=== PATIENT | female | born 1945 | race Caucasian/White ===

== ENCOUNTER 2018-11-19 09:10 | Outpatient (CLI) | payer BC, MEDICARE ==
--- NOTE | 2018-11-19 12:42 | CT ---
CT LUMBAR SPINE WITHOUT CONTRAST: Axial tomograms were obtained with multiplanar reconstruction. INDICATION: Back pain. Prior back surgery. Scoliosis and arthritis. FINDINGS: There is prominent scoliotic curvature of the lumbar spine with convexity to the right apex at L4-5. Severe degenerative disk disease at L2-3, L3-4, and L4-5. There is lateral subluxation to the right of L4 on L5. This is seen in the coronal projection. Vacuum phenomenon is seen at all 3 of these d isk spaces with severe degenerative disk and end plate change. Mild right lateral compression of the L4 vertebra due to the scoliotic curvature and subluxation. In the sagittal view, the vertebrae maintain posterior height and alignment. At L1-2, mild disk bulge. Mild central canal stenosis. Left foraminal stenosis due to asymmetric di sk and fact hypertrophy. At L2-3, mild disk bugle without significant central canal stenosis. Left foraminal stenosis and enc roachment secondary to asymmetric disk protrusion. At L3-4, evidence for broad-based disk bulge slightly more prominent centrally. Moderate central can al stenosis. Severe left foraminal stenosis. Asymmetric disk protrusion into the left foramina late rally on the left. At L4-5, broad-based disk bulge. Mild to moderate central canal stenosis. Severe right foraminal st enosis due to hypertrophic change and asymmetric disk protrusion. At L5-S1, no significant disk bulge or protrusion. No central canal or foraminal stenosis. Incidentally noted is aneurysmal dilatation of the lower abdominal aorta. Total AP dimension is not adequately measured on this exam. A width of this aneurysm is measured at up to 6 cm. IMPRESSION: 1. Severe degenerative changes of the lumbar spine. There is severe scoliotic curvature to the righ t with severe degenerative disk and end plate changes at L2-3, L3-4, and L4-5 levels. Lateral sublux ation of L4 and L5 to the right. Foraminal stenosis at multiple levels as described above. 2. A large abdominal aortic aneurysm is incompletely evaluated. POS: [facility]
== END 2018-11-19 09:11 | disposition home or self-care (01) ==
LOC: SCSCT 09:10
PROVIDERS: ATTEND Anesthesiology Pain Medicine
DX: M51.16 Intervertebral disc disorders with radiculopathy, lumbar region (principal); M47.26 Other spondylosis with radiculopathy, lumbar region; M41.9 Scoliosis, unspecified; M48.061 Spinal stenosis, lumbar region without neurogenic claudication; S33.140A Subluxation of L4/L5 lumbar vertebra, initial encounter
CPT/HCPCS: 72131

== ENCOUNTER 2018-12-06 07:36 | Outpatient (CLI) | payer BC, MEDICARE ==
--- NOTE | 2018-12-06 08:17 | ULT ---
Exam: Abdominal ultrasound HISTORY: Abdominal aortic aneurysm. Comparison none TECHNIQUE: Grayscale sagittal and transverse imaging of the abdominal aorta is performed. Doppler norma ging was also performed. FINDINGS: Proximal aorta measures 2.1 x 2.9 x 2.1 cm.. There is aneurysmal dilatation of the midabdominal aorta measuring 3.8 x 7.3 x 4.4 cm. There is eccen tric thrombus in the mid abdominal aorta. Distal abdominal aorta measures 1.8 x 1.0 x 1.6 cm. IMPRESSION: Aneurysmal dilatation of the mid abdominal aorta as described above. Better interrogation with CT ang iogram is recommended, along with a cardiovascular surgical consultation.
== END 2018-12-06 07:37 | disposition home or self-care (01) ==
LOC: SCSULT 07:36
PROVIDERS: ATTEND Family Medicine
DX: I71.4 Abdominal aortic aneurysm, without rupture (principal); I77.811 Abdominal aortic ectasia
CPT/HCPCS: 76706

== ENCOUNTER 2019-01-05 11:18 | Outpatient (CLI) | payer BC, MEDICARE ==
[~2019-01-05 11:18] MED LIST: Iopamidol 370 76% 100 ML VIAL ONE
--- NOTE | 2019-01-05 14:51 | CT ---
CT ANGIOGRAM OF THE ABDOMEN WITH AND WITHOUT CONTRAST: HISTORY: Abdominal aortic aneurysm evaluation. No reported rupture. COMPARISON: None. CORRELATION: Aortic ultrasound 12/06/2018; CT lumbar spine 11/19/2018. TECHNIQUE: A CT angiogram of the abdominal aorta is performed in the axial plane. Three-dimensional reformatted images are submitted for interpretation. FINDINGS: ABDOMEN CT: Lung bases are clear. Heart size is normal. There is appropriate arterial phase enhancement of the liver, spleen, pancreas, and bilateral adrenal glands. Gallbladder is unremarkable. No gastrohepatic, retrocrural, or periportal lymphadenopathy. Symmetric enhancement of the kidneys. There is thinning of the inferior pole of the right kidney. S ubcentimeter hypodensity in the upper pole of the right kidney cannot be further characterized. Ther e is a hypodensity in the lower pole of the right kidney compatible with a 2.2 x 2.8 cm cyst. No mesenteric mass, lymphadenopathy, free air, or free fluid. Limited evaluation of the alimentary canal by the lack of oral contrast. No evidence of bowel obstru ction. CT PELVIS: Unremarkable urinary bladder. Adnexa are unremarkable. There is a calcification in the uterine fund us, measuring 2.1 x 1.8 cm, likely associated with a calcified uterine leiomyoma. There is no pelvic mass, lymphadenopathy, free air, or free fluid. Osseous structures do not demonstrate any lytic or blastic lesions. There is evidence of previous ve rtebroplasty at L4. There is rightward scoliosis at the L2-L3 level with leftward angulation at the L4 level. Pseudoarthrosis of the left and right L5 ala with the sacrum. CT ANGIOGRAM: The descending thoracic aorta demonstrates atherosclerosis. The celiac artery origin, superior mesen teric artery origin, bilateral renal artery origins, as well as the origin of the inferior mesenteric artery demonstrate mild atherosclerotic disease without high-grade stenosis. The aortic bifurcation , bilateral common iliac arteries, and external iliac arteries do have atherosclerotic changes, witho ut high-grade stenosis. There is aneurysmal dilatation of the infrarenal abdominal aorta. There is associated tortuosity. Maximum dimension of the transverse plane is 3.6 cm. Maximum dimension in th e anterior posterior plate is 3.9 cm. Evaluation of the mediolateral plane is limited due to tortuos ity but appears to be at least 5.5 cm. There is eccentric thrombus. There is resultant mild narrowi ng of the lumen. There are small areas of ulceration/outpouching of contrast in the infrarenal abdom inal aorta. An ulceration measuring 1.4 cm in craniocaudal dimension is suspected. There does appea r to be short segment moderate to severe luminal narrowing of the abdominal aorta just beyond the k[place] gin of the inferior mesenteric artery. At this level, the luminal diameter is 1.0 x 0.8 cm. IMPRESSION: 1. Elongation and aneurysmal dilatation of the infrarenal abdominal aorta. There is extensive throm bus formation with ulceration in the noncalcified mural thrombus. 2. Atherosclerosis involving the origin of the abdominal vasculature as described above without evid ence of high-grade stenosis. 3. Short segment severe stenosis involving the abdominal aorta just beyond the origin of the inferio r mesenteric artery (coronal image 84, series 401; image 56, series 400; and image 61, series 3). POS: [facility]
== END 2019-01-05 11:19 | disposition home or self-care (01) ==
LOC: CT 11:18
PROVIDERS: ATTEND Thoracic Surgery (Cardiothoracic Vascular Surgery)
DX: I71.4 Abdominal aortic aneurysm, without rupture (principal); I77.811 Abdominal aortic ectasia; I74.09 Other arterial embolism and thrombosis of abdominal aorta
CPT/HCPCS: 74174; 82565; Q9967

== ENCOUNTER 2019-08-22 10:37 | Outpatient (CLI) | payer BC, MEDICARE ==
--- NOTE | 2019-08-22 11:36 | ULT ---
BILATERAL CAROTID DUPLEX ULTRASOUND: HISTORY: Amaurosis fugax, left eye TECHNIQUE: Grayscale, color-flow and spectral Doppler ultrasound imaging of the extracranial carotid artery syst ems and vertebral arteries was performed bilaterally. FINDINGS: Bilateral carotid bifurcation and internal carotid artery calcified and noncalcified plaque. Addition al atherosclerosis in the right common carotid artery The peak systolic velocity in the right ICA measures 64.6 cm/s. The peak systolic velocity in the ri ght CCA measures 77.9 cm/s. The peak systolic velocity in the left ICA measures 63.3 cm/s. The peak systolic velocity in the l eft CCA measures 77.9 cm/s. The right IC/CC ration is0.8. The left IC/CC ratio is 0.8. Vertebral flow: antegrade, bilaterally. . IMPRESSION: No hemodynamically significant stenosis of either carotid artery
== END 2019-08-22 10:38 | disposition home or self-care (01) ==
LOC: SCSULT 10:37
PROVIDERS: ATTEND Family Medicine
DX: G45.3 Amaurosis fugax (principal)
CPT/HCPCS: 93880

== ENCOUNTER 2019-10-28 05:53 | Outpatient (CLI) | payer BC, MEDICARE, OTHER ==
[2019-10-28 15:03] LABS: Anion Gap 15 mmol/L (10-20); BUN (Urea Nitrogen) 28 mg/dL (9.8-20.1); Calc. Creatinine Clearance 0 mL/min (70-130); Calcium 9.6 mg/dL (7.8-10.44); Carbon Dioxide 26 mmol/L (23-31); Chloride 101 mmol/L (98-107); Estimated GFR-MDRD 36; Glucose 155 mg/dL (83-110); Hemoglobin 15.1 g/dL (12.0-16.0); Mean Corpuscular HGB CONC 32.6 g/dL (32.0-36.0); Mean Corpuscular Hemoglobin 35.3 pg (27.0-31.0); Mean Platelet Volume 8.3 fL (7.4-10.4); Platelet Count 206 thou/uL (130-400); Potassium 4.3 mmol/L (3.5-5.1); Red Blood Cell (RBC) Count 4.26 mill/uL (4.20-5.40); Sodium 138 mmol/L (136-145); White Blood Cell (WBC) Count 12.8 thou/uL (4.8-10.8)
[2019-10-29 12:09] LABS: SARS-CoV-2 MS2 Positive; SARS-CoV-2 N Gene Negative; SARS-CoV-2 S Gene Negative; SARS-CoV-2 orf1ab Negative
== END 2019-10-28 05:54 | disposition home or self-care (01) ==
LOC: LABBT 05:53
PROVIDERS: ATTEND Thoracic Surgery (Cardiothoracic Vascular Surgery)
DX: Z01.812 Encounter for preprocedural laboratory examination (principal); Z11.59 Encounter for screening for other viral diseases; I71.4 Abdominal aortic aneurysm, without rupture
CPT/HCPCS: 80048; 85027; 87635; U0003

== ENCOUNTER 2019-10-28 11:30 | Inpatient (IN) | payer BC, MEDICARE ==
[2019-10-25 12:05] VITALS: BMI 18.8
[2019-11-01] MEDS ORDERED: Fentanyl 100 MCG/2 ML VIAL ONE ×3 (06:30→10:42)
[2019-11-01] MEDS ORDERED: Midazolam HCl 2 mg/2 ml Vial ONE (06:30)
[2019-11-01] MEDS ORDERED: Heparin 5,000 UNITS/ML VIAL ONE (06:42)
[2019-11-01] MEDS ORDERED: Heparin 10,000 UNITS/1 ML VIAL 30,000 UNITS in Sodium Chloride 0.9% 1,000 ML FS SCH (07:30)
[2019-11-01] MEDS ORDERED: Ondansetron HCl/PF 4 MG/2 ML Vial IVP PRN (08:46)
[2019-11-01] MEDS ORDERED: Fentanyl 100 MCG/2 ML VIAL SLOW IVP PRN ×2 (11:00)
[2019-11-01] MEDS ORDERED: DOPamine 400 MG/D5W 250 ML 250 ML IVPB PRN (11:00)
[2019-11-01] MEDS ORDERED: Nitroglycerin 50 MG/250 ML BOT 250 ML IVPB PRN (11:00)
[2019-11-01] MEDS ORDERED: Naloxone HCl 0.4 mg/ml Vial IV PRN (12:01)
[2019-11-01 12:16] LABS: Hemoglobin 13.2 g/dL (12.0-16.0); Platelet Count 179 thou/uL (130-400)
[2019-11-01] MEDS ORDERED: PHENYLEPHRINE-NS 100 MCG/ML 10 ML SYRINGE ONE (12:21)
[2019-11-01] MEDS ORDERED: Ondansetron PF 4 MG/2 ML Vial ONE (12:21)
[2019-11-01] MEDS ORDERED: Dexamethasone 20 MG/5 ML VIAL ONE (12:21)
[2019-11-01] MEDS ORDERED: Labetalol HCl 100 MG/20 ML VIAL ONE (12:21)
[2019-11-01] MEDS ORDERED: Glycopyrrolate 0.2 MG/ML 5 ML SYRINGE ONE (12:21)
[2019-11-01] MEDS ORDERED: Lidocaine 1% PF 5 ML VIAL ONE (12:21)
[2019-11-01] MEDS ORDERED: Ketorolac Tromethamine 30 MG/ML VIAL ONE (12:21)
[2019-11-01] MEDS ORDERED: PROPOFOL 200 MG/20 ML VIAL ONE (12:21)
[2019-11-01] MEDS ORDERED: Vecuronium 10 MG VIAL ONE (12:21)
[2019-11-01] MEDS: fentaNYL Citrate/PF 2,000 MCG in Sodium Chloride 0.9% 60 ML IV PRN (12:23)
[2019-11-01] MEDS: Vancomycin 1 GM in Premix Bag 1 BAG IVPB SCH (13:22)
[2019-11-01] MEDS: CEFAZOLIN 2 GM in Premix Bag 1 BAG IVPB SCH ×2 (15:00→23:48)
--- NOTE | 2019-11-01 15:55 | EKG ---
Test Reason : PREOP Blood Pressure : / mmHG Vent. Rate : 068 BPM Atrial Rate : 068 BPM P-R Int : 144 ms QRS Dur : 080 ms QT Int : 426 ms P-R-T Axes : 077 -35 066 degrees QTc Int : 452 ms Normal sinus rhythm Left axis deviation Abnormal ECG No previous ECGs available Confirmed by DR. Bekah KAUFFMAN MD ([id number]) on 11/01/2019 3:54:54 PM Referred By: MADELYN Confirmed By:DR. Bekah KAUFFMAN MD
[2019-11-01] MEDS: Lactated Ringer's 1,000 ML IV SCH ×2 (16:11→23:55)
[2019-11-01] MEDS: Hydrocortisone Sod Succ/PF 100 mg/2 ml Vial IVP SCH (20:41)
[2019-11-01] MEDS: Lorazepam 2 MG/ML VIAL SLOW IVP SCH (20:41)
[2019-11-02] MEDS: Vancomycin 1 GM in Premix Bag 1 BAG IVPB SCH ×2 (00:43→11:25)
[2019-11-02 04:12] LABS: #Lymphocytes 0.5 thou/uL (1.20-3.40); #Monocytes 1.2 thou/uL (0.11-0.59); #Neutrophils 9.5 thou/uL (1.40-6.50); %Basophils 0.1 % (0.0-1.0); %Eosinophils 0.2 % (0.0-10.0); %Lymphocytes 4.7 % (21.0-51.0); %Monocytes 10.9 % (0.0-10.0); %Neutrophils 84.1 % (42.0-75.0); Hemoglobin 10.8 g/dL (12.0-16.0); Mean Corpuscular HGB CONC 31.7 g/dL (32.0-36.0); Mean Platelet Volume 8.6 fL (7.4-10.4); Platelet Count 153 thou/uL (130-400); RBC Distribution Width 11.9 % (11.5-14.5); Red Blood Cell (RBC) Count 3.18 mill/uL (4.20-5.40); White Blood Cell (WBC) Count 11.3 thou/uL (4.8-10.8)
[2019-11-02 04:30] LABS: Anion Gap 12 mmol/L (10-20); BUN (Urea Nitrogen) 20 mg/dL (9.8-20.1); Calc. Creatinine Clearance 36 mL/min (70-130); Carbon Dioxide 28 mmol/L (23-31); Chloride 104 mmol/L (98-107); Estimated GFR-MDRD 49; Glucose 110 mg/dL (83-110); Potassium 3.7 mmol/L (3.5-5.1); Sodium 140 mmol/L (136-145)
[2019-11-02] MEDS: Lactated Ringer's 1,000 ML IV SCH ×2 (06:20→09:27)
--- NOTE | 2019-11-02 06:43 | OP ---
DATE OF PROCEDURE: 11/01/2019 PREOPERATIVE DIAGNOSIS: Abdominal aortic aneurysm. PROCEDURE PERFORMED: Resection of abdominal aortic aneurysm with placement of a #14 Dacron Hemashield straight graft. SEED ANALYSIS LABORATORY ASSISTANT: Dr. Rowe. ESTIMATED BLOOD LOSS: Less than 300. DESCRIPTION OF PROCEDURE: After adequate anesthesia had been obtained, a long midline incision was made. Peritoneum entered and the bowel retracted to the right. Dissection was carried cephalad well above the renal vein, but underneath renal vein until the right renal artery was identified. Dissection was then carried distally down to the common iliac bifurcation, which was gently exposed. The patient was then heparinized with good ACT levels, following which clamps were applied to the aorta just below the renal artery and then to the aorta just at the bifurcation of the common iliacs. Inferior mesenteric artery was oversewn with a silk ligature and the aneurysm was opened and lumbar vessels oversewn x2. The thrombus was removed and a 14 Hemashield graft was anastomosed proximally with a running 3-0 Prolene suture and some pledgetted sutures were required to reinforce this. Distal anastomosis was then performed with a running 4-0 Prolene suture. Flushing forward and backward prior to restoring flow with compression on the femoral arteries in the groin. Following protamine administration and obtaining good hemostasis, the graft was covered with the old aneurysm sac from about the lower 3rd proximally and then the reperitonealization was carried out to separate bowel from the remainder of the arteries. The bowel was returned to the abdominal cavity and the fascia was then closed with a running double-stranded PDS suture, and subcutaneous tissue and skin were closed in layers. The patient had palpable dorsalis pedis pulses at the conclusion of the procedure with pink feet. Job ID: [id number]
[2019-11-02] MEDS: CEFAZOLIN 2 GM in Premix Bag 1 BAG IVPB SCH (06:57)
[2019-11-02] MEDS ORDERED: Prevnar 13-Val Conj/PF 0.5 ML SYRINGE IM ONE (09:00)
[2019-11-02] MEDS: Aspirin Chewable 81 MG TAB PO SCH (09:08)
[2019-11-02] MEDS: Enoxaparin Sodium 30 MG/0.3 ML SYRINGE SC SCH (09:09)
[2019-11-02] MEDS: Hydrocortisone Sod Succ/PF 100 mg/2 ml Vial IVP SCH ×2 (09:10→20:29)
[2019-11-02] MEDS: Lorazepam 2 MG/ML VIAL SLOW IVP SCH ×3 (09:10→20:29)
[2019-11-02] MEDS: fentaNYL Citrate/PF 2,000 MCG in Sodium Chloride 0.9% 60 ML IV PRN (10:22)
[2019-11-02] MEDS: Ondansetron PF 4 MG/2 ML Vial IVP PRN (11:25)
[2019-11-02] MEDS: Acetaminophen 500 MG TAB PO SCH ×2 (11:25→17:27)
[2019-11-02 14:31] LABS: Hemoglobin 11.3 g/dL (12.0-16.0); Platelet Count 135 thou/uL (130-400)
[2019-11-02] MEDS: BEER 1 CAN PO SCH ×2 (17:39→18:11)
[2019-11-03] MEDS: Acetaminophen 500 MG TAB PO SCH ×4 (00:27→17:33)
[2019-11-03 00:52] LABS: Vancomycin, Trough 22.4 ug/mL
[2019-11-03] MEDS: Vancomycin 1 GM in Premix Bag 1 BAG IVPB SCH (01:30)
[2019-11-03] MEDS: Lorazepam 2 MG/ML VIAL SLOW IVP SCH (03:30)
[2019-11-03 03:44] LABS: #Lymphocytes 0.5 thou/uL (1.20-3.40); #Neutrophils 7.7 thou/uL (1.40-6.50); %Basophils 0.1 % (0.0-1.0); %Eosinophils 0.2 % (0.0-10.0); %Lymphocytes 4.9 % (21.0-51.0); %Monocytes 10.7 % (0.0-10.0); %Neutrophils 84.2 % (42.0-75.0); Hemoglobin 10.9 g/dL (12.0-16.0); Mean Corpuscular HGB CONC 31.5 g/dL (32.0-36.0); Mean Corpuscular Hemoglobin 33.8 pg (27.0-31.0); Mean Platelet Volume 8.7 fL (7.4-10.4); Platelet Count 127 thou/uL (130-400); RBC Distribution Width 11.7 % (11.5-14.5); Red Blood Cell (RBC) Count 3.23 mill/uL (4.20-5.40); White Blood Cell (WBC) Count 9.2 thou/uL (4.8-10.8)
[2019-11-03 05:15] LABS: Anion Gap 12 mmol/L (10-20); BUN (Urea Nitrogen) 12 mg/dL (9.8-20.1); Calc. Creatinine Clearance 51 mL/min (70-130); Calcium 8.5 mg/dL (7.8-10.44); Carbon Dioxide 29 mmol/L (23-31); Chloride 102 mmol/L (98-107); Estimated GFR-MDRD 72; Glucose 87 mg/dL (83-110); Potassium 3.3 mmol/L (3.5-5.1); Sodium 140 mmol/L (136-145)
[2019-11-03] MEDS ORDERED: HYDROcodone/Acetaminophen 10/325 mg Tablet PO SCH (09:00)
[2019-11-03] MEDS ORDERED: Lactated Ringer's 1,000 ML IV SCH (09:21)
[2019-11-03] MEDS ORDERED: Diazepam 5 MG TAB PO PRN (09:21)
[2019-11-03] MEDS: Rosuvastatin 10 MG TAB PO SCH (09:40)
[2019-11-03] MEDS: Polyethylene Glycol 3350 17 GM Packet PO SCH (09:40)
[2019-11-03] MEDS: Enoxaparin Sodium 30 MG/0.3 ML SYRINGE SC SCH (09:40)
[2019-11-03] MEDS: Triamterene/Hydrochlorothiazide 37.5 mg/25 mg Tablet PO SCH (09:40)
[2019-11-03] MEDS: Aspirin 325 mg Enteric Coated Tablet PO SCH (09:40)
[2019-11-03] MEDS: CeleCOXIB 100 MG CAP PO SCH ×2 (09:40→20:33)
[2019-11-03] MEDS ORDERED: predniSONE 5 MG TAB PO SCH (10:00)
[2019-11-03] MEDS: fentaNYL Citrate/PF 2,000 MCG in Sodium Chloride 0.9% 60 ML IV PRN (12:29)
[2019-11-03] MEDS: Aspirin Chewable 81 MG TAB PO SCH (13:17)
[2019-11-03] MEDS: Hydrocortisone Sod Succ/PF 100 mg/2 ml Vial IVP SCH (13:17)
[2019-11-03] MEDS: Lactated Ringer's 1,000 ML IV SCH (13:18)
[2019-11-03] MEDS: BEER 1 CAN PO SCH (13:18)
[2019-11-03] MEDS: Ondansetron PF 4 MG/2 ML Vial IVP PRN (17:33)
[2019-11-04] MEDS: Acetaminophen 500 MG TAB PO SCH ×4 (00:03→15:59)
[2019-11-04] MEDS: Polyethylene Glycol 3350 17 GM Packet PO SCH (09:28)
[2019-11-04] MEDS: Triamterene/Hydrochlorothiazide 37.5 mg/25 mg Tablet PO SCH (09:28)
[2019-11-04] MEDS: Aspirin 325 mg Enteric Coated Tablet PO SCH (09:28)
[2019-11-04] MEDS: predniSONE 5 MG TAB PO SCH (09:29)
[2019-11-04] MEDS: Enoxaparin Sodium 30 MG/0.3 ML SYRINGE SC SCH (09:30)
[2019-11-04] MEDS: CeleCOXIB 100 MG CAP PO SCH ×2 (09:30→20:42)
[2019-11-04] MEDS: Rosuvastatin 10 MG TAB PO SCH (09:30)
[2019-11-04] MEDS ORDERED: HYDROcodone/Acetaminophen 10/325 mg Tablet PO PRN (09:50)
[2019-11-04] MEDS: HYDROcodone/Acetaminophen 10/325 mg Tablet PO PRN ×3 (11:39→22:54)
[2019-11-05] MEDS: Acetaminophen 500 MG TAB PO SCH ×3 (00:42→11:08)
[2019-11-05] MEDS: HYDROcodone/Acetaminophen 10/325 mg Tablet PO PRN ×2 (04:12→10:42)
[2019-11-05] MEDS: Rosuvastatin 10 MG TAB PO SCH (10:41)
[2019-11-05] MEDS: CeleCOXIB 100 MG CAP PO SCH (10:44)
[2019-11-05] MEDS: Aspirin 325 mg Enteric Coated Tablet PO SCH (10:45)
[2019-11-05] MEDS: Triamterene/Hydrochlorothiazide 37.5 mg/25 mg Tablet PO SCH (10:45)
[2019-11-05] MEDS: predniSONE 5 MG TAB PO SCH (10:45)
[2019-11-05] MEDS: Enoxaparin Sodium 30 MG/0.3 ML SYRINGE SC SCH (10:48)
[2019-11-05] MEDS: Polyethylene Glycol 3350 17 GM Packet PO SCH (10:49)
[2019-11-05 11:20] VITALS: BP 142/81; TEMP 98.7
== END 2019-11-05 13:59 | disposition home or self-care (01) | DRG 269 ==
LOC: SURG A 11-01 06:24 → CCU 11-01 11:23 → SURG B 11-03 09:32
PROVIDERS: ADMIT Thoracic Surgery (Cardiothoracic Vascular Surgery); ATTEND Thoracic Surgery (Cardiothoracic Vascular Surgery)
PROC: 04R00JZ Replacement of Abdominal Aorta with Synthetic Substitute, Open Approach (ICD-10-PCS; principal; 2019-11-01)
DX: I71.4 Abdominal aortic aneurysm, without rupture (principal); I10 Essential (primary) hypertension; E78.5 Hyperlipidemia, unspecified; J30.2 Other seasonal allergic rhinitis; F32.9 Major depressive disorder, single episode, unspecified; Z88.6 Allergy status to analgesic agent; Z88.8 Allergy status to other drugs, medicaments and biological substances; Z86.73 Personal history of transient ischemic attack (TIA), and cerebral infarction without residual deficits; Z98.42 Cataract extraction status, left eye; Z98.41 Cataract extraction status, right eye; Z87.891 Personal history of nicotine dependence
CPT/HCPCS: 36415; 36416; 80048; 80202; 85014; 85018; 85025; 85049; 86850; 86900; 86901; 93005; 93010; C1768; J0690; J1100; J1642; J1644; J1650; J1720; J1885; J2060; J2250; J2405; J2704; J3010; J3370; J3490; J7512

== ENCOUNTER 2021-02-01 10:52 | Outpatient (CLI) | payer BC, MEDICARE | END 2021-02-01 10:53 | disposition home or self-care (01) | LOC: LABBT 10:52 | PROVIDERS: ATTEND Orthopaedic Surgery | DX: Z01.818 Encounter for other preprocedural examination (principal); M17.0 Bilateral primary osteoarthritis of knee; Z20.822 Contact with and (suspected) exposure to COVID-19 | CPT/HCPCS: 71046; 80048; 81001; 85025; 85610; 86850; 86900; 86901; 87081; U0003; U0005 ==

== ENCOUNTER 2021-02-06 05:43 | Observation (INO) | payer BC, MEDICARE ==
[2021-02-01 12:26] LABS: Bilirubin Neg (Negative); Blood, Urine Negative (Negative); Clarity Clear (Clear); Glucose, Urine (Dipstick) Normal (Negative); Ketone, Urine Negative (Negative); Leukocyte 25 (Negative); Nitrite Negative (Negative); Protein, Urine (Dipstick) 15 mg/dl (Neg-Trace); Urobilinogen Normal mg/dL (Less than 2); pH, Urine 6.5 (5.0-9.0)
[2021-02-01 12:38] LABS: #Basophils 0.1 10x3/uL (0.0-0.2); #Eosinphils 0.1 10x3/uL (0.0-0.5); #Monocytes 0.6 10x3/uL (0.0-1.1); #Neutrophils 7.5 10x3/uL (1.5-8.4); %Basophils 0.9 % (0.0-2.0); %Lymphocytes 9.9 % (18.0-47.0); %Monocytes 6.7 % (0.0-10.0); %Neutrophils 80.9 % (40.0-75.0); Hemoglobin 12.9 g/dL (12.0-15.5); Mean Corpuscular HGB CONC 31.7 g/dL (32.0-36.0); Mean Corpuscular Hemoglobin 33.9 pg (27.0-33.0); Mean Corpuscular Volume 106.8 fl (81.6-98.3); Mean Platelet Volume 10.2 fl (7.4-10.4); Platelet Count 224 10x3/uL (150-450); Red Blood Cell (RBC) Count 3.81 10x6/uL (3.90-5.03); White Blood Cell (WBC) Count 9.3 10x3/uL (3.5-10.5)
[2021-02-01 12:40] LABS: INR-International Normal Ratio 0.9; Prothrombin Time 10.4 sec (9.5-12.1)
[2021-02-01 12:46] LABS: Anion Gap 17 mmol/L (10-20); BUN (Urea Nitrogen) 30 mg/dL (9.8-20.1); Calc. Creatinine Clearance 0 mL/min (70-130); Carbon Dioxide 22 mmol/L (23-31); Chloride 104 mmol/L (98-107); Glucose 100 mg/dL (83-110); Sodium 138 mmol/L (136-145)
[2021-02-01 14:02] LABS: Bacteria/HPF 1+ HPF (None Seen); RBC/HPF 0-3 HPF (0-3); Squamous Epithelial 0-3 HPF (0-3); WBC/HPF 0-3 HPF (0-3)
[2021-02-02 13:13] LABS: SARS-CoV-2 PCR by NAA Not Detected (NotDetected)
[2021-02-06] MEDS ORDERED: Fentanyl 100 MCG/2 ML VIAL ONE ×7 (06:18→13:59)
[2021-02-06] MEDS ORDERED: methylPREDNISolone Acetate 40 mg/ml Vial ONE (06:27)
[2021-02-06] MEDS ORDERED: Lidocaine 1% (PF) 30 ML VIAL ONE (06:27)
[2021-02-06] MEDS ORDERED: Sodium Chloride 0.9% 100 ML ONE ×2 (06:42→13:44)
[2021-02-06] MEDS ORDERED: Vancomycin 1 GM/200 ML BAG ONE (06:42)
[2021-02-06] MEDS ORDERED: Tranexamic Acid 1,000 MG/10 ML VIAL ONE ×2 (06:42→13:49)
[2021-02-06] MEDS ORDERED: Hydrocortisone Sod Succ/PF 100 mg/2 ml Vial ONE (07:05)
[2021-02-06] MEDS ORDERED: Midazolam HCl 2 mg/2 ml Vial ONE (07:08)
[2021-02-06] MEDS ORDERED: Acetaminophen 325 MG TAB PO PRN (08:05)
[2021-02-06] MEDS ORDERED: traMADol HCl 50 MG TAB PO PRN ×3 (08:05→13:30)
[2021-02-06] MEDS ORDERED: Promethazine HCl 25 MG/ML VIAL IM PRN ×3 (08:05→13:30)
[2021-02-06] MEDS ORDERED: Fentanyl 100 MCG/2 ML VIAL SLOW IVP PRN (08:05)
[2021-02-06] MEDS ORDERED: Ondansetron PF 4 MG/2 ML Vial IVP PRN ×2 (08:05→13:30)
[2021-02-06] MEDS ORDERED: Zolpidem Tartrate 5 MG TAB PO PRN ×2 (08:05→13:30)
[2021-02-06] MEDS ORDERED: HYDROcodone/Acetaminophen 10/325 mg Tablet PO PRN ×3 (08:05→13:30)
[2021-02-06] MEDS ORDERED: diphenhydrAMINE 25 MG CAP PO PRN (08:05)
[2021-02-06] MEDS ORDERED: Diazepam 5 MG TAB PO PRN (08:07)
[2021-02-06] MEDS ORDERED: Tranexamic Acid 1,000 MG in Sodium Chloride 0.9% 100 ML IVPB SCH (08:15)
[2021-02-06] MEDS ORDERED: Aspirin 81 mg Enteric Coated Tablet PO SCH (09:00)
[2021-02-06] MEDS ORDERED: CeleCOXIB 100 MG CAP PO SCH ×2 (09:00)
[2021-02-06] MEDS ORDERED: Bupivacaine PF 0.5% 30 ML VIAL ONE (09:43)
[2021-02-06] MEDS ORDERED: Lidocaine 1% PF 5 ML VIAL ONE (10:44)
[2021-02-06] MEDS ORDERED: Ondansetron PF 4 MG/2 ML Vial ONE (10:44)
[2021-02-06] MEDS ORDERED: ePHEDrine 50 MG/ML VIAL ONE (10:44)
[2021-02-06] MEDS ORDERED: PROPOFOL 200 MG/20 ML VIAL ONE (10:44)
[2021-02-06] MEDS ORDERED: Ropivacaine 0.5% HCl/PF (150 MG/30 ML VIAL) ONE (10:44)
[2021-02-06] MEDS ORDERED: Phenylephrine 10 MG/ML VIAL ONE (11:00)
[2021-02-06 12:12] LABS: Anion Gap 11 mmol/L (10-20); BUN (Urea Nitrogen) 26 mg/dL (9.8-20.1); Calc. Creatinine Clearance 24 mL/min (70-130); Calcium 9.3 mg/dL (7.8-10.44); Carbon Dioxide 26 mmol/L (23-31); Chloride 106 mmol/L (98-107); Glucose 109 mg/dL (83-110); Potassium 4.3 mmol/L (3.5-5.1); Sodium 139 mmol/L (136-145)
[2021-02-06] MEDS ORDERED: Ondansetron HCl/PF 4 MG/2 ML Vial IVP PRN (12:39)
[2021-02-06] MEDS ORDERED: Promethazine HCl 25 MG/ML VIAL IVPB PRN (12:39)
[2021-02-06] MEDS ORDERED: Fentanyl 100 MCG/2 ML VIAL IV PRN (13:27)
[2021-02-06] MEDS ORDERED: Ropivacaine 0.2% 550 ML 550 ML NERVE BLCK SCH (13:30)
[2021-02-06] MEDS ORDERED: HYDROmorphone 0.5 MG/0.5 ML SYRINGE ONE ×2 (14:13→14:27)
[2021-02-06 16:00] VITALS: BMI 18.6
[2021-02-06] MEDS: DULoxetine 30 MG CAP PO SCH ×2 (16:46→20:51)
[2021-02-06] MEDS: Sodium Chloride 0.9% 1,000 ML IV SCH ×2 (16:46→17:48)
[2021-02-06] MEDS: Triamterene/Hydrochlorothiazide 37.5 mg/25 mg Tablet PO SCH (16:46)
[2021-02-06] MEDS: Gabapentin 300 MG CAP PO SCH ×2 (16:46→20:49)
[2021-02-06] MEDS: Rosuvastatin 10 MG TAB PO SCH (16:46)
[2021-02-06] MEDS: Aspirin 81 mg Enteric Coated Tablet PO SCH ×2 (16:46→20:51)
[2021-02-06] MEDS: Methocarbamol 500 MG TAB PO SCH ×3 (16:46→21:12)
[2021-02-06] MEDS: ceFAZolin Sodium/D5W 2 GM in Premix Bag 1 BAG IVPB SCH ×2 (16:47→23:25)
[2021-02-06] MEDS: Ketorolac Tromethamine 30 MG/ML VIAL IVP PRN ×2 (17:47→23:26)
[2021-02-06] MEDS ORDERED: Vancomycin 1 GM in Premix Bag 1 BAG IVPB SCH (20:00)
[2021-02-06] MEDS: Lisinopril 10 MG TAB PO SCH (20:51)
[2021-02-06] MEDS: HYDROcodone/Acetaminophen 10/325 mg Tablet PO PRN (20:52)
[2021-02-07] MEDS: Sodium Chloride 0.9% 1,000 ML IV SCH ×3 (00:52→20:58)
[2021-02-07] MEDS: HYDROcodone/Acetaminophen 10/325 mg Tablet PO PRN ×5 (02:54→21:17)
[2021-02-07] MEDS: Temazepam 15 MG CAP PO PRN ×2 (02:55→21:14)
[2021-02-07] MEDS: Ketorolac Tromethamine 30 MG/ML VIAL IVP PRN (05:04)
[2021-02-07 06:03] LABS: Hemoglobin 9.6 g/dL (12.0-16.0); Mean Corpuscular HGB CONC 32.7 g/dL (32.0-36.0); Mean Corpuscular Hemoglobin 35.4 pg (27.0-31.0); Mean Platelet Volume 7.8 fL (7.4-10.4); Platelet Count 162 thou/uL (130-400); RBC Distribution Width 11.3 % (11.5-14.5); White Blood Cell (WBC) Count 10.4 thou/uL (4.8-10.8)
[2021-02-07] MEDS: Aspirin 81 mg Enteric Coated Tablet PO SCH ×2 (08:01→20:20)
[2021-02-07] MEDS: Rosuvastatin 10 MG TAB PO SCH (08:01)
[2021-02-07] MEDS: DULoxetine 30 MG CAP PO SCH ×2 (08:02→20:20)
[2021-02-07] MEDS: Ferrous Gluconate 324 MG TAB PO SCH ×2 (08:02→17:43)
[2021-02-07] MEDS: Methocarbamol 500 MG TAB PO SCH ×4 (08:02→20:20)
[2021-02-07] MEDS: Multivitamin W/ Minerals 1 TAB PO SCH (08:02)
[2021-02-07] MEDS: Gabapentin 300 MG CAP PO SCH ×2 (08:02→20:20)
[2021-02-07] MEDS: Senokot S 8.6-50 MG TAB PO SCH ×2 (08:03→20:22)
[2021-02-07] MEDS: predniSONE 5 MG TAB PO SCH (08:03)
[2021-02-07] MEDS: Triamterene/Hydrochlorothiazide 37.5 mg/25 mg Tablet PO SCH (08:03)
[2021-02-07 08:13] LABS: Anion Gap 12 mmol/L (10-20); BUN (Urea Nitrogen) 25 mg/dL (9.8-20.1); Calc. Creatinine Clearance 26 mL/min (70-130); Calcium 8.3 mg/dL (7.8-10.44); Carbon Dioxide 25 mmol/L (23-31); Chloride 102 mmol/L (98-107); Glucose 122 mg/dL (83-110); Potassium 4.7 mmol/L (3.5-5.1); Sodium 134 mmol/L (136-145)
[2021-02-07] MEDS: Lisinopril 10 MG TAB PO SCH (20:19)
[2021-02-08] MEDS: HYDROcodone/Acetaminophen 10/325 mg Tablet PO PRN ×3 (00:58→08:50)
[2021-02-08 06:28] LABS: Hemoglobin 10.2 g/dL (12.0-16.0); Mean Corpuscular HGB CONC 32.7 g/dL (32.0-36.0); Mean Corpuscular Hemoglobin 35.3 pg (27.0-31.0); Platelet Count 156 thou/uL (130-400); RBC Distribution Width 11.5 % (11.5-14.5); White Blood Cell (WBC) Count 7.9 thou/uL (4.8-10.8)
[2021-02-08] MEDS: predniSONE 5 MG TAB PO SCH (08:47)
[2021-02-08] MEDS: Multivitamin W/ Minerals 1 TAB PO SCH (08:47)
[2021-02-08] MEDS: Aspirin 81 mg Enteric Coated Tablet PO SCH (08:47)
[2021-02-08] MEDS: Gabapentin 300 MG CAP PO SCH (08:47)
[2021-02-08] MEDS: Rosuvastatin 10 MG TAB PO SCH (08:47)
[2021-02-08] MEDS: DULoxetine 30 MG CAP PO SCH (08:47)
[2021-02-08] MEDS: Ferrous Gluconate 324 MG TAB PO SCH (08:47)
[2021-02-08] MEDS: Methocarbamol 500 MG TAB PO SCH (09:52)
[2021-02-08] MEDS: Senokot S 8.6-50 MG TAB PO SCH (09:56)
[2021-02-08] MEDS: Triamterene/Hydrochlorothiazide 37.5 mg/25 mg Tablet PO SCH (09:56)
[2021-02-08] MEDS: Sodium Chloride 0.9% 1,000 ML IV SCH (10:41)
[2021-02-08 10:48] VITALS: BP 101/65; TEMP 98.4
== END 2021-02-08 11:40 | disposition home or self-care (01) ==
LOC: SDC 05:43 → SJJU 08:05 → SDC 02-07 17:36 → SJJU 02-07 17:36
PROVIDERS: ADMIT Orthopaedic Surgery; ATTEND Orthopaedic Surgery
PROC: 3E0U33Z Introduction of Anti-inflammatory into Joints, Percutaneous Approach (ICD-10-PCS; principal; 2021-02-06)
PROC: 0SRC0J9 Replacement of Right Knee Joint with Synthetic Substitute, Cemented, Open Approach (ICD-10-PCS; 2021-02-06)
PROC: 8E0YXBZ Computer Assisted Procedure of Lower Extremity (ICD-10-PCS; 2021-02-06)
PROC: 3E0T3BZ Introduction of Anesthetic Agent into Peripheral Nerves and Plexi, Percutaneous Approach (ICD-10-PCS; 2021-02-06)
DX: M17.0 Bilateral primary osteoarthritis of knee (principal); I10 Essential (primary) hypertension; E78.5 Hyperlipidemia, unspecified; Z85.3 Personal history of malignant neoplasm of breast; Z87.891 Personal history of nicotine dependence; Z79.2 Long term (current) use of antibiotics; Z79.52 Long term (current) use of systemic steroids; Z79.899 Other long term (current) drug therapy; Z88.8 Allergy status to other drugs, medicaments and biological substances; Z91.048 Other nonmedicinal substance allergy status
CPT/HCPCS: 36415; 80048; 81001; 85025; 85027; 85610; 86850; 86900; 86901; A4306; C1713; C1776; G0378; J1170; J1720; J1885; J2001; J2250; J2370; J2405; J2704; J2795; J2920; J3010; J3370; J3490; J7050; J7512; S0020; U0003; U0005

== ENCOUNTER 2021-08-28 10:25 | Outpatient (CLI) | payer BC, MEDICARE | END 2021-08-28 10:26 | disposition home or self-care (01) | LOC: LABBT 10:25 | PROVIDERS: ATTEND Orthopaedic Surgery | DX: Z01.818 Encounter for other preprocedural examination (principal); M17.12 Unilateral primary osteoarthritis, left knee; Z20.822 Contact with and (suspected) exposure to COVID-19 | CPT/HCPCS: 80048; 81003; 85025; 85610; 86850; 86900; 86901; 87081; 93005; 93010; U0003; U0005 ==

== ENCOUNTER 2021-09-09 06:32 | Inpatient (IN) | payer BC, MEDICARE ==
[2021-08-28 11:47] LABS: Bilirubin Neg (Negative); Blood, Urine Negative (Negative); Clarity Clear (Clear); Glucose, Urine (Dipstick) Normal (Negative); Ketone, Urine Negative (Negative); Leukocyte Negative (Negative); Nitrite Negative (Negative); Protein, Urine (Dipstick) Negative (Neg-Trace); Specific Gravity, Urine 1.015 (1.002-1.036); Urobilinogen Normal mg/dL (Less than 2)
[2021-08-28 11:58] LABS: #Basophils 0.1 10x3/uL (0.0-0.2); #Eosinphils 0.1 10x3/uL (0.0-0.5); #Monocytes 0.7 10x3/uL (0.0-1.1); #Neutrophils 8.8 10x3/uL (1.5-8.4); %Basophils 0.7 % (0.0-2.0); %Eosinophils 0.7 % (0.0-6.0); %Lymphocytes 9.1 % (18.0-47.0); %Monocytes 6.4 % (0.0-10.0); %Neutrophils 82.5 % (40.0-75.0); Hemoglobin 13.2 g/dL (12.0-15.5); Mean Corpuscular HGB CONC 32.8 g/dL (32.0-36.0); Mean Corpuscular Hemoglobin 34.6 pg (27.0-33.0); Mean Corpuscular Volume 105.5 fl (81.6-98.3); Mean Platelet Volume 10.2 fl (7.4-10.4); Platelet Count 216 10x3/uL (150-450); RBC Distribution Width 13.2 % (11.5-14.5); Red Blood Cell (RBC) Count 3.81 10x6/uL (3.90-5.03); White Blood Cell (WBC) Count 10.7 10x3/uL (3.5-10.5)
[2021-08-28 12:09] LABS: INR-International Normal Ratio 0.9; Prothrombin Time 9.8 sec (9.5-12.1)
[2021-08-28 12:21] LABS: Anion Gap 14 mmol/L (10-20); BUN (Urea Nitrogen) 36 mg/dL (9.8-20.1); Calc. Creatinine Clearance 0 mL/min (70-130); Calcium 9.5 mg/dL (7.8-10.44); Carbon Dioxide 26 mmol/L (23-31); Chloride 102 mmol/L (98-107); Glucose 124 mg/dL (83-110); Potassium 4.9 mmol/L (3.5-5.1); Sodium 137 mmol/L (136-145)
[2021-08-28 13:03] LABS: Anisocytosis SLIGHT = 6-15 cells (100X) (0-5/hpf); Macrocytosis MODERATE=16-30 cells (100X) (0-5/hpf); Platelet Morphology Comment Appears Adequate
[2021-08-28 21:13] LABS: SARS-CoV-2 PCR by NAA Not Detected (NotDetected)
[2021-09-09] MEDS ORDERED: Vancomycin (BATCH) 1.5 GRAM/300 ML BAG ONE (07:54)
[2021-09-09] MEDS ORDERED: Tranexamic Acid 1,000 MG/10 ML VIAL ONE (07:54)
[2021-09-09] MEDS ORDERED: Sodium Chloride 0.9% 100 ML ONE ×2 (07:54→08:22)
[2021-09-09] MEDS ORDERED: Vancomycin 1 GM/200 ML BAG ONE (07:55)
[2021-09-09] MEDS ORDERED: Midazolam HCl 2 mg/2 ml Vial ONE (08:15)
[2021-09-09] MEDS ORDERED: Fentanyl 100 MCG/2 ML VIAL ONE ×2 (08:15→12:39)
[2021-09-09 08:24] LABS: SARS-CoV-2 NAA Rapid Test Not Detected (NotDetected)
[2021-09-09] MEDS ORDERED: HYDROcodone/Acetaminophen 10/325 mg Tablet PO PRN (09:45)
[2021-09-09] MEDS ORDERED: Promethazine HCl 25 MG/ML VIAL IM PRN ×3 (09:45→11:44)
[2021-09-09] MEDS ORDERED: traMADol HCl 50 MG TAB PO PRN ×2 (09:45)
[2021-09-09] MEDS ORDERED: Zolpidem Tartrate 5 MG TAB PO PRN ×2 (09:45→10:10)
[2021-09-09] MEDS ORDERED: Ondansetron PF 4 MG/2 ML Vial IVP PRN ×2 (09:45→10:10)
[2021-09-09] MEDS ORDERED: Ropivacaine 0.2% 550 ML 550 ML NERVE BLCK SCH (09:45)
[2021-09-09] MEDS ORDERED: ceFAZolin (BATCH) 2 GM/100 ML BAG ONE (09:50)
[2021-09-09] MEDS ORDERED: Bupivacaine 0.25% HCL 30 ML VIAL ONE (09:50)
[2021-09-09] MEDS ORDERED: fentaNYL Citrate/PF 100 MCG/2 ML SYRINGE ONE (09:56)
[2021-09-09] MEDS ORDERED: Ondansetron PF 4 MG/2 ML Vial ONE (10:00)
[2021-09-09] MEDS ORDERED: Bupivacaine HCl 0.5%/Epinephrine 1:200,000/PF 30 ml Vial ONE (10:00)
[2021-09-09] MEDS ORDERED: Lidocaine 1% PF 5 ML VIAL ONE (10:00)
[2021-09-09] MEDS ORDERED: PROPOFOL 200 MG/20 ML VIAL ONE (10:00)
[2021-09-09] MEDS ORDERED: Acetaminophen 325 MG TAB PO PRN (10:10)
[2021-09-09] MEDS ORDERED: diphenhydrAMINE 25 MG CAP PO PRN (10:10)
[2021-09-09] MEDS ORDERED: Diazepam 5 MG TAB PO PRN (10:11)
[2021-09-09] MEDS ORDERED: Tranexamic Acid 1,000 MG in Sodium Chloride 0.9% 100 ML IVPB SCH (10:15)
[2021-09-09] MEDS ORDERED: Sodium Chloride 0.9% 1,000 ML IV SCH ×2 (10:15→20:14)
[2021-09-09] MEDS ORDERED: Ondansetron HCl/PF 4 MG/2 ML Vial IVP PRN (11:44)
[2021-09-09] MEDS ORDERED: Promethazine HCl 25 MG/ML VIAL IVPB PRN (11:44)
[2021-09-09] MEDS ORDERED: Ketorolac Tromethamine 30 MG/ML VIAL IVP SCH (12:00)
[2021-09-09] MEDS ORDERED: Gabapentin 300 MG CAP PO SCH (13:00)
[2021-09-09] MEDS: Methocarbamol 500 MG TAB PO SCH ×3 (15:14→20:38)
[2021-09-09] MEDS ORDERED: ceFAZolin (BATCH) 2 GM in Premix Bag 1 BAG IVPB SCH (18:00)
[2021-09-09 18:08] LABS: Anion Gap 12 mmol/L (10-20); BUN (Urea Nitrogen) 25 mg/dL (9.8-20.1); Calc. Creatinine Clearance 33 mL/min (70-130); Calcium 8.3 mg/dL (7.8-10.44); Carbon Dioxide 27 mmol/L (23-31); Chloride 105 mmol/L (98-107); Glucose 209 mg/dL (83-110); Magnesium 1.8 mg/dL (1.6-2.6); Potassium 4.6 mmol/L (3.5-5.1); Sodium 139 mmol/L (136-145)
[2021-09-09 20:05] VITALS: BMI 19.0
[2021-09-09] MEDS: Lisinopril 10 MG TAB PO SCH (20:37)
[2021-09-09] MEDS: Rosuvastatin 10 MG TAB PO SCH (20:38)
[2021-09-09] MEDS: Aspirin 81 mg Enteric Coated Tablet PO SCH (20:38)
[2021-09-09] MEDS: Gabapentin 300 MG CAP PO SCH (20:38)
[2021-09-09] MEDS: DULoxetine 30 MG CAP PO SCH (20:38)
[2021-09-09] MEDS ORDERED: Aspirin 81 mg Enteric Coated Tablet PO SCH (21:00)
[2021-09-09] MEDS: Fentanyl 100 MCG/2 ML VIAL IV PRN (21:45)
[2021-09-09] MEDS: CEFAZOLIN 1 GM in Sodium Chloride 0.9% 100 ML IVPB SCH (21:45)
[2021-09-09] MEDS: Temazepam 15 MG CAP PO PRN (23:10)
[2021-09-09] MEDS: HYDROcodone/Acetaminophen 10/325 mg Tablet PO PRN (23:10)
[2021-09-10] MEDS: HYDROcodone/Acetaminophen 10/325 mg Tablet PO PRN ×5 (03:56→21:47)
[2021-09-10 07:03] LABS: Hemoglobin 10.8 g/dL (12.0-16.0); Mean Corpuscular HGB CONC 32.1 g/dL (32.0-36.0); Mean Corpuscular Hemoglobin 35.9 pg (27.0-31.0); Mean Platelet Volume 7.4 fL (7.4-10.4); Platelet Count 146 thou/uL (130-400); RBC Distribution Width 11.6 % (11.5-14.5); Red Blood Cell (RBC) Count 3.01 mill/uL (4.20-5.40); White Blood Cell (WBC) Count 7.4 thou/uL (4.8-10.8)
[2021-09-10 07:33] LABS: Anion Gap 12 mmol/L (10-20); BUN (Urea Nitrogen) 19 mg/dL (9.8-20.1); Calc. Creatinine Clearance 37 mL/min (70-130); Calcium 8.3 mg/dL (7.8-10.44); Carbon Dioxide 27 mmol/L (23-31); Chloride 104 mmol/L (98-107); Glucose 88 mg/dL (83-110); Magnesium 1.7 mg/dL (1.6-2.6); Potassium 3.6 mmol/L (3.5-5.1); Sodium 139 mmol/L (136-145)
[2021-09-10] MEDS: Triamterene/Hydrochlorothiazide 37.5 mg/25 mg Tablet PO SCH (08:45)
[2021-09-10] MEDS: Methocarbamol 500 MG TAB PO SCH ×4 (08:45→21:47)
[2021-09-10] MEDS: DULoxetine 30 MG CAP PO SCH ×2 (08:45→21:48)
[2021-09-10] MEDS: predniSONE 5 MG TAB PO SCH (08:45)
[2021-09-10] MEDS: Senokot S 8.6-50 MG TAB PO SCH ×2 (08:45→21:48)
[2021-09-10] MEDS: Gabapentin 300 MG CAP PO SCH ×2 (08:45→21:47)
[2021-09-10] MEDS: Aspirin 81 mg Enteric Coated Tablet PO SCH ×2 (08:45→21:47)
[2021-09-10] MEDS: Ferrous Gluconate 324 MG TAB PO SCH ×2 (08:45→21:48)
[2021-09-10] MEDS: Multivitamin W/ Minerals 1 TAB PO SCH (08:46)
[2021-09-10] MEDS ORDERED: CeleCOXIB 100 MG CAP PO SCH (09:00)
[2021-09-10] MEDS ORDERED: HYDROcodone/Acetaminophen 10/325 mg Tablet PO SCH (09:00)
[2021-09-10] MEDS ORDERED: Vancomycin 1 GM in Premix Bag 1 BAG IVPB SCH (09:00)
[2021-09-10] MEDS: Fentanyl 100 MCG/2 ML VIAL IV PRN (10:19)
[2021-09-10] MEDS: CEFAZOLIN 1 GM in Sodium Chloride 0.9% 100 ML IVPB SCH (11:28)
[2021-09-10] MEDS ORDERED: Simethicone Chewable 80 MG TAB PO PRN (11:40)
[2021-09-10] MEDS: Lisinopril 10 MG TAB PO SCH (21:46)
[2021-09-10] MEDS: Temazepam 15 MG CAP PO PRN (21:46)
[2021-09-10] MEDS: Rosuvastatin 10 MG TAB PO SCH (21:48)
[2021-09-11] MEDS: HYDROcodone/Acetaminophen 10/325 mg Tablet PO PRN ×5 (04:31→22:44)
[2021-09-11 06:14] LABS: Hemoglobin 10.7 g/dL (12.0-16.0); Mean Corpuscular HGB CONC 31.3 g/dL (32.0-36.0); Mean Corpuscular Hemoglobin 34.9 pg (27.0-31.0); Mean Platelet Volume 7.7 fL (7.4-10.4); Platelet Count 156 thou/uL (130-400); RBC Distribution Width 11.5 % (11.5-14.5); Red Blood Cell (RBC) Count 3.08 mill/uL (4.20-5.40); White Blood Cell (WBC) Count 10.3 thou/uL (4.8-10.8)
[2021-09-11 06:42] LABS: Anion Gap 11 mmol/L (10-20); BUN (Urea Nitrogen) 15 mg/dL (9.8-20.1); Calc. Creatinine Clearance 40 mL/min (70-130); Calcium 8.6 mg/dL (7.8-10.44); Carbon Dioxide 27 mmol/L (23-31); Chloride 101 mmol/L (98-107); Glucose 93 mg/dL (83-110); Magnesium 1.7 mg/dL (1.6-2.6); Potassium 3.7 mmol/L (3.5-5.1); Sodium 135 mmol/L (136-145)
[2021-09-11] MEDS: Senokot S 8.6-50 MG TAB PO SCH ×2 (09:02→21:23)
[2021-09-11] MEDS: DULoxetine 30 MG CAP PO SCH ×2 (09:02→21:22)
[2021-09-11] MEDS: predniSONE 5 MG TAB PO SCH (09:02)
[2021-09-11] MEDS: Ferrous Gluconate 324 MG TAB PO SCH ×2 (09:02→21:22)
[2021-09-11] MEDS: Methocarbamol 500 MG TAB PO SCH ×4 (09:02→21:21)
[2021-09-11] MEDS: Triamterene/Hydrochlorothiazide 37.5 mg/25 mg Tablet PO SCH (09:02)
[2021-09-11] MEDS: Aspirin 81 mg Enteric Coated Tablet PO SCH ×2 (09:02→21:22)
[2021-09-11] MEDS: Gabapentin 300 MG CAP PO SCH ×2 (09:02→21:22)
[2021-09-11] MEDS: Multivitamin W/ Minerals 1 TAB PO SCH (09:02)
[2021-09-11] MEDS: Rosuvastatin 10 MG TAB PO SCH (21:21)
[2021-09-11] MEDS: Lisinopril 10 MG TAB PO SCH (21:22)
[2021-09-11] MEDS: Temazepam 15 MG CAP PO PRN (22:45)
[2021-09-12] MEDS: HYDROcodone/Acetaminophen 10/325 mg Tablet PO PRN ×2 (04:54→13:51)
[2021-09-12 05:25] LABS: Hemoglobin 10.9 g/dL (12.0-16.0); Mean Corpuscular HGB CONC 32.2 g/dL (32.0-36.0); Mean Corpuscular Hemoglobin 35.7 pg (27.0-31.0); Mean Platelet Volume 7.6 fL (7.4-10.4); Platelet Count 168 thou/uL (130-400); RBC Distribution Width 11.4 % (11.5-14.5); Red Blood Cell (RBC) Count 3.06 mill/uL (4.20-5.40); White Blood Cell (WBC) Count 8.2 thou/uL (4.8-10.8)
[2021-09-12 05:55] LABS: Anion Gap 13 mmol/L (10-20); BUN (Urea Nitrogen) 21 mg/dL (9.8-20.1); Calc. Creatinine Clearance 37 mL/min (70-130); Calcium 9.4 mg/dL (7.8-10.44); Carbon Dioxide 30 mmol/L (23-31); Chloride 98 mmol/L (98-107); Glucose 93 mg/dL (83-110); Potassium 4.1 mmol/L (3.5-5.1); Sodium 137 mmol/L (136-145)
[2021-09-12] MEDS: Ferrous Gluconate 324 MG TAB PO SCH (09:27)
[2021-09-12] MEDS: Multivitamin W/ Minerals 1 TAB PO SCH (09:27)
[2021-09-12] MEDS: DULoxetine 30 MG CAP PO SCH (09:27)
[2021-09-12] MEDS: predniSONE 5 MG TAB PO SCH (09:27)
[2021-09-12] MEDS: Aspirin 81 mg Enteric Coated Tablet PO SCH (09:27)
[2021-09-12] MEDS: Gabapentin 300 MG CAP PO SCH (09:28)
[2021-09-12] MEDS: Triamterene/Hydrochlorothiazide 37.5 mg/25 mg Tablet PO SCH (09:29)
[2021-09-12] MEDS: Senokot S 8.6-50 MG TAB PO SCH (09:30)
[2021-09-12] MEDS: Methocarbamol 500 MG TAB PO SCH ×2 (11:12→14:21)
[2021-09-12 12:38] VITALS: BP 114/73; TEMP 98
== END 2021-09-12 15:00 | disposition home or self-care (01) | DRG 470 ==
LOC: SDC 06:32 → SJJU 10:10
PROVIDERS: ADMIT Orthopaedic Surgery; ATTEND Orthopaedic Surgery
PROC: 0SRD0J9 Replacement of Left Knee Joint with Synthetic Substitute, Cemented, Open Approach (ICD-10-PCS; principal; 2021-09-09)
DX: M17.12 Unilateral primary osteoarthritis, left knee (principal); G45.3 Amaurosis fugax; E87.1 Hypo-osmolality and hyponatremia; Z20.822 Contact with and (suspected) exposure to COVID-19; J44.9 Chronic obstructive pulmonary disease, unspecified; I71.4 Abdominal aortic aneurysm, without rupture; I12.9 Hypertensive chronic kidney disease with stage 1 through stage 4 chronic kidney disease, or unspecified chronic kidney disease; F41.9 Anxiety disorder, unspecified; N18.32 Chronic kidney disease, stage 3b; E21.3 Hyperparathyroidism, unspecified; E78.5 Hyperlipidemia, unspecified; G47.00 Insomnia, unspecified; Z91.048 Other nonmedicinal substance allergy status; Z87.891 Personal history of nicotine dependence; Z88.8 Allergy status to other drugs, medicaments and biological substances; Z85.3 Personal history of malignant neoplasm of breast; Z90.89 Acquired absence of other organs; Z82.49 Family history of ischemic heart disease and other diseases of the circulatory system; Z83.3 Family history of diabetes mellitus; Z82.3 Family history of stroke
CPT/HCPCS: 36415; 36416; 80048; 81003; 83735; 85025; 85027; 85610; 86850; 86900; 86901; 87081; A4306; C1713; C1776; J0690; J2250; J2405; J2704; J2795; J3010; J3370; J3490; J7050; J7512; S0020; U0002; U0003; U0005

== ENCOUNTER 2022-05-07 06:47 | Day surgery (SDC) | payer BC, MEDICARE ==
[2022-05-05 12:14] VITALS: BMI 19.7
[2022-05-07] MEDS ORDERED: Sodium Chloride 0.9% 100 ML ONE (09:10)
[2022-05-07] MEDS ORDERED: CEFAZOLIN 1 GM VIAL ONE (09:10)
[2022-05-07] MEDS ORDERED: Bupivacaine HCl 0.5%/Epinephrine 1:200,000/PF 30 ml Vial ONE (09:16)
[2022-05-07] MEDS ORDERED: Lidocaine 2% PF 5 ML VIAL ONE (09:16)
[2022-05-07] MEDS ORDERED: Fentanyl 100 MCG/2 ML VIAL ONE (09:23)
[2022-05-07] MEDS ORDERED: Propofol 500 MG/50 ML VIAL ONE (09:32)
[2022-05-07] MEDS ORDERED: PROPOFOL 200 MG/20 ML VIAL ONE (09:37)
== END 2022-05-07 11:55 | disposition home or self-care (01) ==
LOC: SDC 06:47
PROVIDERS: ATTEND Anesthesiology Pain Medicine
PROC: 00HU3MZ Insertion of Neurostimulator Lead into Spinal Canal, Percutaneous Approach (ICD-10-PCS; principal; 2022-05-07)
PROC: 0JH70DZ Insertion of Multiple Array Stimulator Generator into Back Subcutaneous Tissue and Fascia, Open Approach (ICD-10-PCS; principal; 2022-05-07)
DX: G89.4 Chronic pain syndrome (principal); M96.1 Postlaminectomy syndrome, not elsewhere classified; M54.16 Radiculopathy, lumbar region; Z79.52 Long term (current) use of systemic steroids; Z79.82 Long term (current) use of aspirin; Z79.899 Other long term (current) drug therapy; Z88.8 Allergy status to other drugs, medicaments and biological substances; Z91.048 Other nonmedicinal substance allergy status
CPT/HCPCS: 72020; C1778; C1787; C1820; J0690; J2001; J2704; J3010; J3490; L8689

== ENCOUNTER 2023-03-09 10:23 | Outpatient (CLI) | payer BC, MEDICARE | END 2023-03-09 10:24 | disposition home or self-care (01) | LOC: SCSMRI 10:23 | PROVIDERS: ATTEND Anesthesiology Pain Medicine | DX: M48.02 Spinal stenosis, cervical region (principal); M48.062 Spinal stenosis, lumbar region with neurogenic claudication; M47.812 Spondylosis without myelopathy or radiculopathy, cervical region; M47.813 Spondylosis without myelopathy or radiculopathy, cervicothoracic region; M41.9 Scoliosis, unspecified; R60.0 Localized edema | CPT/HCPCS: 72141; 72148 ==